=== PATIENT | female | born 1990 | race Caucasian/White ===

== ENCOUNTER 2016-08-04 20:11 | Emergency (ER) | payer BC, MEDICAID, OTHER ==
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
== END 2016-08-04 20:50 | disposition home or self-care (01) ==
LOC: FB.ED 20:11
CPT/HCPCS: 99283